=== PATIENT | female | born 1985 | race Caucasian/White ===

== ENCOUNTER 2016-11-03 23:04 | Emergency (ER) | payer OTHER ==
[~2016-11-03 23:04] MED LIST: BACTRIM DS TABL1 TA1 PO; BACTRIM DS TABL1 TA2 PO; FLEXERIL10 MG PO; KEFLEX500 M1 PO; NAPROSYN250 M1 PO; NO MEDICATIONS; TYLENOL #3 PO
== END 2016-11-04 00:25 | disposition home or self-care (01) ==
LOC: SED 23:04
DX: L02.414 Cutaneous abscess of left upper limb (principal); J02.0 Streptococcal pharyngitis
CPT/HCPCS: 10060; 87070; 87186; 87205; 87880; 99283

== ENCOUNTER 2017-01-20 16:26 | Emergency (ER) | payer OTHER | END 2017-01-20 18:29 | disposition home or self-care (01) | LOC: CED 16:26 | DX: F11.129 Opioid abuse with intoxication, unspecified (principal) | CPT/HCPCS: 99282 ==